=== PATIENT | male | born 1985 | race Caucasian/White ===

== ENCOUNTER 2018-03-18 19:41 | Emergency (ER) | payer OTHER ==
[~2018-03-18] VITALS: Ht 188 cm; Wt 79.9 kg
[2018-03-18 19:44] VITALS: BP 161/85; PULSE 104; TEMP 36.7; O2SAT 100; Ht 188 cm; Wt 79.9 kg
[2018-03-18] MEDS ORDERED: ACETAMINOPHEN 325 MG TAB PO STA (20:07)
[2018-03-18] MEDS ORDERED: CHLORHEXIDINE GLUCONATE 0.12% 480 ML MT STA (20:07)
[2018-03-18] MEDS ORDERED: IBUPROFEN 200 MG TAB PO STA (20:07)
[2018-03-18] MEDS ORDERED: DEXAMETHASONE **PF** INJ 10 MG/ML VIAL PO STA (20:07)
--- NOTE | 2018-03-18 20:08 | EMERGENCY ROOM VISIT NOTE ---
History Report prepared by Yassine: Areli Cain Under the Supervision of: Dr. Lan Benavides M.D. First contact with patient: 19:51 Chief Complaint: FACIAL PAIN/INJURY Stated Complaint: SORE CHEEK,SWELLING,DIFFICULTY CHEWING AND SWALLOW History of Present Illness The patient is a 32 year old white male with a past medical history of asthma who presents to the ED with a cc of right sided facial pain beginning this afternoon. Positive right arm tingling. Negative headache, neck pain, recent diet changes, not brushing his teeth. He states he was driving to [employer] and noticed that his right cheek was sore. He states he also had some body aches but ignored it as he thought it was from going to the gym. When he got home, he tried eating dinner but could not as he had difficulty chewing and swallowing. He describes his pain as a tingling and notes that chewing worsens his pain. The patient is a current smoker and smokes about 2-3 cigarettes a week. Source of History: patient Onset: this afternoon Position: other (right side of face, right cheek, upper and lower extremities) Quality: tingling Modifying Factors (Worsening): other (chewing) Associated Symptoms: No headache, No neck pain Note: Positive right arm tingling. Negative recent diet changes, not brushing his teeth Review of Systems See HPI for pertinent positives and negatives. A total of ten systems were reviewed and were otherwise negative. Past Medical & Surgical Medical Problems: (1) Asthma Family History Cancer Diabetes mellitus Heart disease Social History Smoking Status: Current Some Day Smoker Smokeless Tobacco Use: No Alcohol Use: occasionally Housing Status: lives with significant other Occupation Status: employed Current/Historical Medications Scheduled Bupropion Hcl (Bupropion Hcl Xl), 150 MG PO DAILY Loratadine (Claritin), 10 MG PO DAILY Allergies Coded Allergies: Amoxicillin (Verified Allergy, Unknown, as a child, 03/18/18) Clavulanic Acid (Verified Allergy, Unknown, as a child, 03/18/18) Sulfa Antibiotics (Verified Allergy, Unknown, rash, 03/18/18) Sulfamethoxazole w/Trimethoprim (Unverified Allergy, Unknown, RASH, 03/18/18 ) Physical Exam Vital Signs Date Time Temp Pulse Resp B/P (MAP) Pulse Ox O2 Delivery O2 Flow Rate FiO2 03/18/18 19:44 36.7 104 18 161/85 100 Room Air Physical Exam GENERAL: Awake, alert, well-appearing, NAD. Wearing glasses. HENT: Normocephalic, atraumatic. No sinus tenderness. TMs are clear. No evidence of any dental abscess or caries. Posterior pharynx clear. No tonsillar or uvular swelling. No submental sublingual swelling. No evidence of swelling to the cheek or mandible. EYES: Normal conjunctiva. Sclera non-icteric. PERRL. No anisocoria. NECK: Supple. No nuchal rigidity. FROM of the neck. No reproducible tenderness along the trigeminal nerve distribution RESPIRATORY: CTAB, no rhonchi, wheezing, crackles CARDIAC: RRR, no MRG ABDOMEN: Soft, NTND, BS+ MSK: No chest wall TTP, no LE edema NEURO: GCS 15, CN 2-12 intact, moves all 4s on command SKIN: No rash or jaundice noted. Medical Decision & Procedures Medications Administered Medications (Trade) Dose Ordered Sig/Tiburcio Route Start Time Stop Time Status Last Admin Dose Admin Ibuprofen (Advil Tab) 400 mg NOW STAT PO 03/18/18 20:07 03/18/18 20:09 DC 03/18/18 20:21 400 MG Acetaminophen (Tylenol Tab) 650 mg NOW STAT PO 03/18/18 20:07 03/18/18 20:09 DC 03/18/18 20:07 650 MG Lidocaine HCl/ Diphenhydramine HCl/Al Hydroxide/ Mg Hydroxide/ Glycerin/Barcode ONE ONCE MT 03/18/18 20:30 03/18/18 20:31 DC 03/18/18 20:41 5 ML Dexamethasone Sodium Phosphate (Decadron Inj) 10 mg STK-MED ONCE .ROUTE 03/18/18 20:15 03/18/18 20:16 DC 03/18/18 20:19 10 MG ED Course 1953: The patient was evaluated in room C3. A complete history and physical exam was performed. 2001: I advised the patient on smoking cessation at this time. 2118: I reevaluated the patient. Discussed results and discharge instructions: He verbalized understanding and agreement. The patient is ready for discharge. Medical Decision The patient is a 32 year old white male with a past medical history of asthma who presents to the ED with a cc of right sided facial pain beginning this afternoon. Positive right arm tingling. Negative headache, neck pain, recent diet changes, not brushing his teeth. Nursing notes reviewed. Ancillary studies and prior records reviewed. Differential diagnosis: Etiologies such as referred ear dental pain, aphthous ulcer, odontogenic infection, RPA, [employer]CH[employer], trigem neuralgia, as well as others were entertained. Patient was seen and evaluated the bedside. The patient was complaining of some right-sided jaw pain. Patient stated was worse with chewing. Patient denies any hard candies. Patient denies any abrasive, ascitic, or other foods. On exam the patient does not have any evidence of odontogenic infection. There is no evidence of any ulceration of the mouth. There is no posterior pharyngeal swelling. Patient is non-stridulous the patient has full range of motion. There is no cheek swelling and no evidence of something like a cyst sialolithiasis. Patient is otherwise well-appearing. I discussed with him at length that I do not believe he would benefit from any blood work or imaging at this time given his lack of other concerning findings. Patient also does not have any evidence of overt dental caries. Patient was given medications. Upon reassessment the patient was not feeling that much improved I did discuss that this may just be TMJ dysfunction. He does not have any evidence of pain like trigeminal neuralgia. No headache. I discussed that he should try Motrin Tylenol over the next 48 hours and should try a soft diet. Patient was given strict follow-up, discharge, and return precautions. All questions were answered. Patient was deemed suitable for outpatient follow-up at this time. Patient agreed with the plan of care and was safely discharged home. Head Trauma GCS Score: 15 Medication Reconcilliation Current Medication List: was personally reviewed by me Blood Pressure Screening Patient's blood pressure: Elevated blood pressure Blood pressure disposition: Elevated BP felt to be situational Impression Primary Impression: TMJ dysfunction Additional Impression: Jaw pain Scribe Attestation The scribe's documentation has been prepared under my direction and personally reviewed by me in its entirety. I confirm that the note above accurately reflects all work, treatment, procedures, and medical decision making performed by me. Departure Information Dispostion Home / Self-Care Referrals No Doctor, Assigned (PCP) Forms HOME CARE DOCUMENTATION FORM, IMPORTANT VISIT INFORMATION Patient Instructions Diet Soft Dc, ED TMJ Syndrome, My [facility] Additional Instructions Please return to the emergency department if you have worsening or recurrent symptoms not amenable to at-home treatment. Please call for a follow-up appointment with her primary care physician. Please take your medications as prescribed. If you have other concerns and/or complaints please feel free to also call your primary care physician's office or return the ED for further evaluation, management, and treatment. You may take 600 mg Ibuprofen every 6 hours as needed for pain/fever with food unless told by your physician not to take NSAIDs. You may take tylenol 650 mg every 6 hours as needed for pain/fever unless told by your physician to not take it or have liver problems. You may take motrin and tylenol separately or at the same time. Take your medications as prescribed. Consider a soft diet. You have been examined and treated today on an emergency basis only. This is not a substitute for, or an effort to provide, complete comprehensive medical care. It is impossible to recognize and treat all injuries or illnesses in a single emergency department visit. It is therefore important that you follow up closely with [facility], your PCP, and/or your specialist(s). Call as soon as possible for an appointment. Thank you for your time and consideration. I look forward to speaking with you again soon. Please don't hesitate to call us if you have any questions. Problem Qualifiers
[2018-03-18] MEDS ORDERED: MAGIC SWIZZLE PO STA (20:09)
[2018-03-18] MEDS ORDERED: DEXAMETHASONE SOD INJ 10 MG/ML VIAL ONE (20:15)
[2018-03-18] MEDS ORDERED: LIDOCAINE HCL 2% VISCOUS SOLN 1.25 ML, DiphenhydrAMINE HCL SYRUP 3.125 MG, ALUMINUM/MAG... MT ONE ×4 (20:30)
[2018-03-18] MEDS ORDERED: BUPR150T5 PO (20:41)
[2018-03-18] MEDS ORDERED: CLR10 PO (20:41)
== END 2018-03-18 21:39 | disposition home or self-care (01) ==
LOC: C.EDB 19:43 → C.EDC 21:39
DX: M26.621 Arthralgia of right temporomandibular joint (principal); R03.0 Elevated blood-pressure reading, without diagnosis of hypertension; J45.909 Unspecified asthma, uncomplicated; Z72.0 Tobacco use; Z79.899 Other long term (current) drug therapy; Z88.0 Allergy status to penicillin; Z88.1 Allergy status to other antibiotic agents; Z88.2 Allergy status to sulfonamides